=== PATIENT | female | born 1995 | race Hispanic/Latino ===

== ENCOUNTER 2016-04-29 13:27 | Emergency (ER) | payer OTHER ==
[~2016-04-29] VITALS: Ht 152.4 cm; Wt 63.6 kg
[2016-04-29 13:54] VITALS: BP 113/81; PULSE 92; RESP 16; O2SAT 98
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
[2016-04-29] MEDS ORDERED: AMOX-366 PO (17:19)
[2016-04-29] MEDS ORDERED: AGM875T PO (17:19)
[2016-04-29] MEDS ORDERED: TdaP Vaccine 0.5 mL Inj IM ONE (17:30)
== END 2016-04-29 17:56 | disposition home or self-care (01) ==
LOC: SED 13:27
DX: S61.250A Open bite of right index finger without damage to nail, initial encounter (principal); S09.90XA Unspecified injury of head, initial encounter; Y04.8XXA Assault by other bodily force, initial encounter; Y00.XXXA Assault by blunt object, initial encounter; Y92.9 Unspecified place or not applicable; Y93.89 Activity, other specified; Y99.8 Other external cause status; Z23 Encounter for immunization

== ENCOUNTER 2016-10-10 11:04 | Emergency (ER) | payer OTHER ==
[~2016-10-10 11:04] MED LIST: AGM875T PO
[2016-10-10 11:14] VITALS: BP 136/84; PULSE 110; RESP 16; O2SAT 100
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
[2016-10-10] MEDS ORDERED: TdaP Vaccine 0.5 mL Inj IM ONE (11:30)
[2016-10-10 14:15] VITALS: BP 145/80; PULSE 97; O2SAT 96
--- NOTE | 2016-10-10 15:05 | NUR ---
Mental Health Evaluation Janay June 10/10/2016 Reason for Hospital visit: Self Harm Precipitating Problem: Pt self presented to the ED for self harm by cutting. PAPETERIE TABLE ASSEMBLER met with Pt at bedside. Pt reported that she has been feeling very depressed for the last two weeks and she has been coping with self harm by cutting herself. Pt indicated that she cut when she was a teen but hasn't done so since she was 14 years old until a week ago. Pt explained that she was feeling very down this morning and cut with a razor blade and accidentally cut deeper than she intended. Pt adamantly denied any desire to kill herself. 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 Pt indicated that she found a new job but it doesn't start until October and she has been feeling very unhappy with her life situation. Pt stated, "I just don't feel like I'm where I should be in life." Pt explained that she has been isolating to her room at home and has been spending most of her days in bed watching tv. Pt reported that her appetite and ADLs were at baseline. Pt is requesting outpatient mental health resources and discharge home. Mental Status: Pt is a 21 year old female. Pt is well groomed and casually dressed. Pt makes appropriate eye contact. Pt's affect is blunted and her mood is depressed. Pt's speech is normal in rate and volume. Pt is A/O x4. Pt's thought process is clear and linear. Pt denies SI, HI and A/V H. Psychiatric Hx: Pt has not psychiatric hospitalizations. Pt is not enrolled in outpatient mental health treatment. Pt is not taking any psychiatric medications. CD Hx: Pt reported that she smokes about 4 grams of cannabis every other day with her most recent use on 10/09/2016. Pt reported that she used Siomara yesterday and LSD about a week ago. Pt indicated that she binge drinks about twice a month. Pt declined CD resources. Legal Hx: Pt reported no legal concerns. Diagnosis: F32.9 - Unspecified Depressive Disorder Disposition: Pt denies current SI, HI and A/V H. Pt is not gravely disabled. Pt does not meet the necessary acuity for inpatient psychiatric hospitalization at this time. Pt requested a list of local outpatient mental health treatment providers. PAPETERIE TABLE ASSEMBLER provided Pt with the requested resources and explained how to access those services. PAPETERIE TABLE ASSEMBLER conferred with ED MD and the decision was made to discharge Pt home today. Pt to return to the ED if she feels unable to remain safe. XENIA Nuñez, AAC
== END 2016-10-10 14:17 | disposition home or self-care (01) ==
LOC: SED 11:04
DX: S61.512A Laceration without foreign body of left wrist, initial encounter (principal); F43.0 Acute stress reaction; F14.10 Cocaine abuse, uncomplicated; X78.9XXA Intentional self-harm by unspecified sharp object, initial encounter; F12.10 Cannabis abuse, uncomplicated; F15.10 Other stimulant abuse, uncomplicated; Y93.9 Activity, unspecified; Y92.9 Unspecified place or not applicable; Y99.8 Other external cause status; Z91.5 Personal history of self-harm; Z23 Encounter for immunization